=== PATIENT | male | born 1930 ===

== ENCOUNTER 2017-11-16 18:38 | Emergency (ER) | payer MEDICARE, BC ==
[2017-11-16] MEDS ORDERED: Lidocaine 1% w/Epinephrine 1:100K 30 ML VIAL ONE (19:39)
--- NOTE | 2017-11-16 20:19 | CT ---
HEAD CT NONCONTRAST: 11/16/17 INDICATION: Posttraumatic head injury, pain. FINDINGS: There is a frontal scalp hematoma. Parenchymal volume loss with compensatory dilatation of ventricula r system present. 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 No intracranial hemorrhage, mass effect or midline shift. 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 IMPRESSION: No acute intracranial hemorrhage or mass effect. Additional details are described above. POS: [facility]
[2017-11-16] MEDS ORDERED: Bacitracin Zinc 1 Packet ONE (20:29)
== END 2017-11-16 20:35 | disposition home or self-care (01) ==
LOC: SCSER 18:38
DX: S01.81XA Laceration without foreign body of other part of head, initial encounter (principal); I10 Essential (primary) hypertension; Z79.82 Long term (current) use of aspirin; Z79.899 Other long term (current) drug therapy; W20.8XXA Other cause of strike by thrown, projected or falling object, initial encounter
CPT/HCPCS: 12013; 70450; J2001